=== PATIENT | male | born 1980 | race African-American/Black ===

== ENCOUNTER → 2019-03-18 | Outpatient (CLI) | payer OTHER | LOC: M SLEEP 19:28 | PROVIDERS: ATTEND Nurse Practitioner Family | DX: R06.83 Snoring (principal) ==

== ENCOUNTER → 2019-04-15 | Outpatient (CLI) | payer OTHER | LOC: M SLEEP 19:44 | PROVIDERS: ATTEND Nurse Practitioner Family | DX: G47.33 Obstructive sleep apnea (adult) (pediatric) (principal) ==